=== PATIENT | female | born 1975 | race Caucasian/White ===

== ENCOUNTER → 2016-03-30 | Outpatient (CLI) | payer OTHER ==
--- NOTE | 2016-03-30 21:16 | MR ---
EXAMINATION TYPE: MR lumbar spine wo con DATE OF EXAM: 03/30/2016 4:07 PM COMPARISON: Pelvic ultrasound January 25, 2014 HISTORY: numbness and tingling in both legs for about a year per patient. Benign essential tremor per order. TECHNIQUE: Multiplanar, multisequence imaging of the lumbar spine is performed without IV contrast. FINDINGS: Survey images shows heterogeneous bulky likely fibroid uterus which correlates with pelvic ultrasound. Sagittal images of the lumbar spine show vertebral body heights and alignment to appear s atisfactory. There is disc desiccation at L2-L3 level otherwise the intervertebral discs demonstrate normal heights and hydration. No significant posterior disc herniations are seen on sagittal images The conus medullaris is normal in position and signal ending at inferior L1 vertebral body level. Th e bone marrow signal intensity is within normal limits. No significant spurring is seen. Axial images show at the T12-L1 and L1-L2 levels to appear within normal limits. Axial images at L2-L3 level show mild broad based posterior disc protrusion minimally effacing anteri or thecal sac on axial image 18, bilateral neural foramina are patent. Axial images at the L3-L4 level show mild broad disc bulge mildly effacing the anterior thecal sac, b ilateral neural foramina are patent. Axial images at L4-L5 level show mild facet degenerative changes bilaterally. Spinal canal is preserv ed and bilateral neural foramina are patent. Axial images at L5-S1 level show mild facet degenerative changes bilaterally with central disc protru shane but spinal canal is preserved and bilateral neural foramina are patent. IMPRESSION: Some multilevel degenerative changes in the mid to lower lumbar spine as detailed above. Prominent fibroid type uterus redemonstrated.
== END | disposition home or self-care (01) ==
LOC: RADMRIMAIN 15:26
PROVIDERS: ATTEND Psychiatry & Neurology Neurology
DX: M47.816 Spondylosis without myelopathy or radiculopathy, lumbar region (principal)
CPT/HCPCS: 72148

== ENCOUNTER → 2016-10-06 | Outpatient (CLI) | payer OTHER ==
--- NOTE | 2016-10-07 11:48 | MR ---
Brain MRI without contrast HISTORY: Multiple sclerosis, 235 Multiplanar multisequence imaging through the brain and correlated to prior brain MR 09/30/2015 Patient refused intravenous contrast. There is no restricted diffusion to suggest subacute ischemia. There is no hemorrhage or hydrocephalu s. Corpus callosum, pituitary, cervical medullary junction, cerebellopontine angles are stable. Infla mmatory change is again noted within the maxillary sinuses, there may be mucus retention cyst. There are normal vascular flow voids. Scattered white matter hyperintensities on inversion recovery and T2-weighted sequences are too numer ous to count. Largest lesion in the external capsule on the right measures approximately 11.2 mm as o n prior exam. IMPRESSION: Stable exam, no significant interval change is evident.
== END | disposition home or self-care (01) ==
LOC: RADMRIMAIN 17:53
PROVIDERS: ATTEND Psychiatry & Neurology Neurology
DX: G35 Multiple sclerosis (principal); Z88.6 Allergy status to analgesic agent; Z88.5 Allergy status to narcotic agent; Z88.0 Allergy status to penicillin; Z88.1 Allergy status to other antibiotic agents
CPT/HCPCS: 70551

== ENCOUNTER 2017-02-09 08:44 | Emergency (ER) | payer OTHER ==
[2017-02-09 08:50] VITALS: TEMP 97.3
--- NOTE | 2017-02-09 09:27 | ED ---
General Adult HPI - General Chief complaint: Weakness Stated complaint: MS Symptoms Time Seen by Provider: 02/09/17 08:45 Source: patient, RN notes reviewed Mode of arrival: ambulatory Limitations: no limitations - History of Present Illness Initial comments: This is a 41-year-old female who presents to the emergency department stating she is being worked up for MS. Patient states about an hour and a half prior to arrival she started having blurred vision and this is happened once before. Patient states her neurologist told to come to the emergency department immediately when this occurs. Patient states she also had some fatigue in both of her arms even though she has full function and full sensation she feels as though she can work in her arms out for a few hours. Patient denies any recent fever chills. Patient states she is not going to stay overnight because it is near [place] and she needs to spend the time the children. Patient denies any pain anywhere. Patient denies any palpitations or shortness of breath. Patient denies any abdominal pain patient denies nausea vomiting diarrhea - Related Data Home Medications Medication Instructions Recorded Confirmed Albuterol Inhaler [Ventolin Hfa 1 - 2 puff INHALATION RT-Q6H PRN 02/09/17 Inhaler] Ascorbic Acid [Vitamin C] 1,000 mg PO DAILY 02/09/17 02/09/17 Cholecalciferol [Vitamin D3] 1,000 unit PO DAILY 02/09/17 02/09/17 Cyanocobalamin (Vitamin B-12) 1,000 mcg PO DAILY 02/09/17 02/09/17 [Vitamin B-12] Ibuprofen [Motrin] 200 - 800 mg PO Q6H PRN 02/09/17 02/09/17 Magnesium 200 mg PO DAILY 02/09/17 02/09/17 Multivitamins, Thera [Multivitamin 1 tab PO DAILY 02/09/17 02/09/17 (formulary)] Allergies Allergy/AdvReac Type Severity Reaction Status Date / Time aspirin Allergy Anaphylaxis Verified 02/09/17 09:29 codeine Allergy Swelling Verified 02/09/17 09:29 erythromycin base Allergy Anaphylaxis Verified 02/09/17 09:29 meperidine HCl [From Demerol] Allergy Anaphylaxis Verified 02/09/17 09:29 Penicillins Allergy Anaphylaxis Verified 02/09/17 09:29 Review of Systems ROS Statement: Those systems with pertinent positive or pertinent negative responses have been documented in the HPI. ROS Other: All systems not noted in ROS Statement are negative. Past Medical History Past Medical History: No Reported History Additional Past Medical History / Comment(s): ovarian cyst, gallstones, essential tremors, "uncomfirmed MS" History of Any Multi-Drug Resistant Organisms: None Reported Past Surgical History: Cholecystectomy Additional Past Surgical History / Comment(s): D&C Past Psychological History: Anxiety Smoking Status: Current every day smoker Past Alcohol Use History: Rare Past Drug Use History: None Reported General Exam - General Exam Comments Initial Comments: GENERAL: Patient is well-developed and well-nourished. Patient is nontoxic and well- hydrated and is in mild distress. ENT: Neck is soft and supple. No significant lymphadenopathy is noted. Oropharynx is clear. Moist mucous membranes. Neck has full range of motion without eliciting any pain. EYES: The sclera were anicteric and conjunctiva were pink and moist. Extraocular movements were intact and pupils were equal round and reactive to light. Eyelids were unremarkable. PULMONARY: Unlabored respirations. Good breath sounds bilaterally. No audible rales rhonchi or wheezing was noted. CARDIOVASCULAR: There is a regular rate and rhythm without any murmurs gallops or rubs. ABDOMEN: Soft and nontender with normal bowel sounds. No palpable organomegaly was noted. There is no palpable pulsatile mass. SKIN: Skin is clear with no lesions or rashes and otherwise unremarkable. NEUROLOGIC: Patient is alert and oriented x3. Cranial nerves II through XII are grossly intact. Motor and sensory are also intact. Normal speech, volume and content. Symmetrical smile. MUSCULOSKELETAL: Normal extremities with adequate strength and full range of motion. LYMPHATICS: No significant lymphadenopathy is noted PSYCHIATRIC: Normal psychiatric evaluation. Limitations: no limitations Course Vital Signs 02/09/17 08:47 Temperature 97.3 F L Pulse Rate 76 Respiratory 15 Rate Blood Pressure 176/75 O2 Sat by Pulse 100 Oximetry Medical Decision Making - Medical Decision Making I spoke with Dr. Palacio doctor took one this evening patient at 1:00 tomorrow. I move the patient's MRI to today at 2:[address] Palacio follows results. Disposition Clinical Impression: Multiple sclerosis exacerbation Disposition: HOME SELF-CARE Condition: Good Instructions: Autoimmune Disease (ED) Referrals: Dhara Domínguez MD [Primary Care Provider] - 1-2 days Time of Disposition: 09:56
[2017-02-09 10:06] VITALS: BP 152/7; PULSE 65; RESP 18
== END 2017-02-09 10:04 | disposition home or self-care (01) ==
LOC: EC 08:44
DX: G35 Multiple sclerosis (principal); F17.200 Nicotine dependence, unspecified, uncomplicated; Z79.899 Other long term (current) drug therapy; Z88.0 Allergy status to penicillin; Z88.1 Allergy status to other antibiotic agents; Z88.5 Allergy status to narcotic agent; Z88.6 Allergy status to analgesic agent
CPT/HCPCS: 99284; 70553; A9581

== ENCOUNTER → 2017-02-09 | Outpatient (CLI) | payer OTHER ==
--- NOTE | 2017-02-09 15:44 | MR ---
EXAMINATION TYPE: MR brain wo/w con DATE OF EXAM: 02/09/2017 COMPARISON: Most recent MRI October 06, 2016 HISTORY: MS, Dizziness, chung weakness TECHNIQUE: Multiplanar, multisequence images of the brain and brainstem is performed without and with IV contras t, utilizing 7.5 mL intravenous Gadavist gadolinium contrast is administered intravenously. Demyelin ating disease protocol with additional Sagittal Flair sequence performed. FINDINGS: T2 Lesions Present : Yes Approximate Number of Lesions: Approximately 40 scattered from the small lesions Locations Identified : Scattered lesions no definitive infratentorial lesions Size of Reference Lesion(s): 1. 0.9 cm x 0.4 cm x 0.5 cm on axial image 20 and sagittal image 22 right frontal coronal radiata le shane felt stable Enhancing Lesion(s) Present: No T1 Hypointense Lesion(s) Present: Yes Change from Prior: Stable Diffusion weighted images demonstrate no evidence of a recent infarct or other diffusion abnormality. There is no worrisome extra-axial fluid collection. The ventricular system and cisternal spaces ar e normal in size and appearance. The brain volume is age appropriate. Midline structures demonstrate normal morphology. The craniocervical junction appears within normal limits. Post contrast images demonstrate no abnormal enhancement. The dural venous sinuses appear pa tent. The globes are distorted by artifact. There is redemonstration of 2.2 cm mucous retention cyst or polyp in inferior right maxillary sinus otherwise paranasal sinuses are clear. IMPRESSION: Fairly moderate nonspecific white matter changes most likely on basis of patient's known multiple sclerosis redemonstrated. No new or enhancing lesions are seen when compared with most recen t MRI.
== END | disposition home or self-care (01) ==
LOC: RADMRIMAIN 14:08
PROVIDERS: ATTEND Psychiatry & Neurology Neurology
DX: R90.82 White matter disease, unspecified (principal); G35 Multiple sclerosis; Z88.0 Allergy status to penicillin; Z88.5 Allergy status to narcotic agent; Z88.6 Allergy status to analgesic agent
CPT/HCPCS: 70553; A9581; 99284

== ENCOUNTER → 2017-09-18 | Outpatient (CLI) | payer OTHER ==
[2017-09-18 14:39] LABS: Anisocytosis Slight; Basophils % (A) 0 %; Eosinophils # (A) 0.1 k/uL (0-0.7); Eosinophils % (A) 1 %; HCT 37.4 % (34.0-46.0); HGB 11.5 gm/dL (11.4-16.0); Hypochromasia Slight; Lymphocytes # (A) 2.1 k/uL (1.0-4.8); Lymphocytes % (A) 24 %; MCH 26.6 pg (25.0-35.0); MCHC 30.8 g/dL (31.0-37.0); MCV 86.4 fL (80.0-100.0); Mean Platelet Volume 7.3; Monocytes # (A) 0.6 k/uL (0-1.0); Monocytes % (A) 6 %; Neutrophils # (A) 5.7 k/uL (1.3-7.7); Neutrophils % (A) 66 %; Platelet Count 362 k/uL (150-450); RBC 4.32 m/uL (3.80-5.40); RDW 16.2 % (11.5-15.5); WBC 8.6 k/uL (3.8-10.6)
--- NOTE | 2017-09-18 15:04 | US ---
EXAMINATION TYPE: US pelvic complete DATE OF EXAM: 09/18/2017 COMPARISON: US January 25, 2014 CLINICAL HISTORY: N92.1 Menorrhagia w/irregular cycle. Irregular heavy painful cycles, history of end ometriosis and uterine fibroids, 6, para 4, miscarriage 2 TECHNIQUE: . Transabdominal sonographic images of the pelvis were acquired. Date of LMP: 08/25/2017 EXAM MEASUREMENTS: Uterus: 12.4 x 9.0 x 8.4 cm Endometrial Stripe: 1.3 cm Right Ovary: 2.5 x 1.4 x 2.1 cm Left Ovary: 2.8 x 1.9 x 1.8 cm 1. Uterus: enlarged, bulky, heterogeneous with 6.7cm hypoechoic area mid/fundal portion, probable fi broid 2. Endometrium: wnl for patients LMP, somewhat distorted due to uterine fibroid 3. Right Ovary: wnl 4. Left Ovary: wnl 5. Bilateral Adnexa: wnl 6. Posterior cul-de-sac: wnl IMPRESSION: Heterogeneous enlarged bulky uterus felt to reflect underlying fibroids largest increased in size from 2014 study.
== END | disposition home or self-care (01) ==
LOC: RADUSWWP 13:44
PROVIDERS: ATTEND Obstetrics & Gynecology
DX: D25.9 Leiomyoma of uterus, unspecified (principal); N85.2 Hypertrophy of uterus
CPT/HCPCS: 36415; 76856; 83001; 83002; 84146; 84443; 85025

== ENCOUNTER → 2017-12-20 | Outpatient (CLI) | payer OTHER ==
[2017-12-20 11:14] LABS: Anisocytosis Slight; Basophils % (A) 0 %; Eosinophils # (A) 0.1 k/uL (0-0.7); Eosinophils % (A) 1 %; HCT 35.1 % (34.0-46.0); HGB 11.4 gm/dL (11.4-16.0); Hypochromasia Moderate; Lymphocytes # (A) 1.9 k/uL (1.0-4.8); Lymphocytes % (A) 27 %; MCH 27.5 pg (25.0-35.0); MCHC 32.4 g/dL (31.0-37.0); MCV 84.9 fL (80.0-100.0); Mean Platelet Volume 7.4; Monocytes # (A) 0.5 k/uL (0-1.0); Monocytes % (A) 7 %; Neutrophils # (A) 4.2 k/uL (1.3-7.7); Neutrophils % (A) 63 %; Platelet Count 357 k/uL (150-450); RBC 4.14 m/uL (3.80-5.40); RDW 16.7 % (11.5-15.5); WBC 6.8 k/uL (3.8-10.6)
[2017-12-20 11:32] LABS: Anion Gap 7 mmol/L; Blood Urea Nitrogen 13 mg/dL (7-17); Calcium 9.5 mg/dL (8.4-10.2); Carbon Dioxide 23 mmol/L (22-30); Chloride 110 mmol/L (98-107); Glucose 96 mg/dL (74-99); Potassium 4.6 mmol/L (3.5-5.1); Sodium 140 mmol/L (137-145)
== END ==
LOC: LABPAT 09:49
PROVIDERS: ATTEND Obstetrics & Gynecology
DX: Z01.812 Encounter for preprocedural laboratory examination (principal)
CPT/HCPCS: 36415; 80048; 85025

== ENCOUNTER 2017-12-28 07:55 | Observation (INO) | payer OTHER ==
[2017-12-19 16:27] VITALS: BMI 30.7
--- NOTE | 2017-12-26 17:21 | P.HPOB ---
History of Present Illness H&P Date: 12/26/17 Chief Complaint: Menorrhagia and enlarged fibroid uterus Krysta is a 42-year-old female with a large 12+ centimeter uterus with a 6.5 cm fibroid. There are also other fibroids noted within the uterus but the largest was approximately size of a tennis ball. She has bleeding that is on many occasions essentially constant. The symptoms have worsened over the last 3 -4 years. We did discuss possible alternatives to hysterectomy, but with the size for uterus a NovaSure would not work as her uterus is about the size limit for NovaSure and with the other symptoms including pressure and discomfort hysterectomy will offer her more relief. Risks/benefits/alternatives to this procedure were discussed with the patient in detail including but not limited to bleeding and infection. Damage to bladder/bowel/vascular injuries/ureter injury/nerve damage. Even potentially . She is scheduled for a robotic- assisted laparoscopic hysterectomy possible ARIES and possible BSO. With the large size for uterus it is certainly possible that we'll need to proceed with an open procedure but we will make every effort to try and do this minimally invasive. All questions are answered for her prior to proceeding to the operative room. Past Medical History Past Medical History: Asthma, COPD, Eye Disorder, Hypertension, Neurologic Disorder Additional Past Medical History / Comment(s): HX Ovarian Cysts, Gallstones. Essential Tremors. VERTIGO. HX OPTIC NEURITIS. BORDERLINE HTN. "Uncomfirmed MS," SEEING NEURO DR X2 YEARS. UTERINE FIBROIDS, HEAVY/IRREG MENSES. History of Any Multi-Drug Resistant Organisms: None Reported Past Surgical History: Cholecystectomy Additional Past Surgical History / Comment(s): D&C. Past Anesthesia/Blood Transfusion Reactions: Family History of Problems w/ Anesthesia, Motion Sickness, Postoperative Nausea & Vomiting (PONV) Additional Past Anesthesia/Blood Transfusion Reaction / Comment(s): MOTHER HAS PONV. Smoking Status: Current every day smoker - Past Family History Mother Family Medical History: Cancer Additional Family Medical History / Comment(s): BREAST, UTERINE Father Family Medical History: Cancer Additional Family Medical History / Comment(s): LUNG, PANCREAS CA Medications and Allergies Home Medications Medication Instructions Recorded Confirmed Type Albuterol Inhaler [Ventolin Hfa 1 - 2 puff INHALATION RT-Q6H PRN 02/09/17 History Inhaler] Ascorbic Acid [Vitamin C] 1,000 mg PO DAILY 02/09/17 12/19/17 History Cholecalciferol [Vitamin D3] 1,000 unit PO Q48H 02/09/17 12/19/17 History Cyanocobalamin (Vitamin B-12) 1,000 mcg PO DAILY 02/09/17 12/19/17 History [Vitamin B-12] Ibuprofen [Motrin] 200 - 800 mg PO Q6H PRN 02/09/17 12/19/17 History Magnesium 200 mg PO DAILY 02/09/17 12/19/17 History Multivitamins, Thera [Multivitamin 1 tab PO DAILY 02/09/17 12/19/17 History (formulary)] ALPRAZolam [Xanax] 0.25 mg PO DAILY PRN 12/19/17 12/19/17 History Biotin (Unknown Dose) 1 cap PO DAILY 12/19/17 History diphenhydrAMINE [Benadryl] 25 mg PO DIRECTED PRN 12/19/17 12/19/17 History Allergies Allergy/AdvReac Type Severity Reaction Status Date / Time morphine Allergy Severe Nausea & Verified 12/19/17 15:51 Vomiting aspirin Allergy Anaphylaxis Verified 12/19/17 15:51 codeine Allergy Swelling Verified 12/19/17 15:51 erythromycin base Allergy Anaphylaxis Verified 12/19/17 15:51 meperidine HCl [From Demerol] Allergy Anaphylaxis Verified 12/19/17 15:51 Penicillins Allergy Anaphylaxis Verified 12/19/17 15:51 Exam Osteopathic Statement: *. No significant issues noted on an osteopathic structural exam other than those noted in the History and Physical/Consult. - OBG Physical Exam Breast: both: normal (no masses) Abdomen: bowel sounds normal, no diffuse tenderness, no bruit present, no guarding noted, no hepatomegaly, no splenomegaly, no mass Vulva: both: normal Vagina: normal moisture, no discharge Cervix: no lesion, no discharge Uterus: Grossly enlarged fibroid uterus Uterus: normal size, enlarged, normal contour, nodular Adnexa: both: normal Anus/Rectum: normal perianal skin, no rectal mass, no hemorrhoids, heme negative
[~2017-12-28 07:55] MED LIST: CLINDAMYCIN 900 MG in DEXTROSE 5% IN WATER 50 ML IVPB ONE; DEXAMETHASONE SOD PHOSPHATE 10 MG/ML 1 ML VIAL IV ONE; GENTAMICIN 300 MG in SODIUM CHLORIDE 0.9% 100 ML IVPB ONE; LIDOCAINE 1% 20 ML VIAL (10MG/ML) FOR IV START INTRADERMA PRN; MIDAZOLAM 2 MG/2 ML VIAL IV PRN; ONDANSETRON 4 MG/2 ML VIAL IVP ONE; SCOPOLAMINE 1.5MG/72HR PATCH TRANSDERM ONE
[2017-12-28] MEDS: LACTATED RINGERS 1,000 ML IV SCH (09:02)
[2017-12-28] MEDS ORDERED: KETOROLAC 30 MG/ML 1 ML VIAL ONE (09:57)
[2017-12-28] MEDS ORDERED: GLYCOPYRROLATE 0.2 MG/ML 2 ML VIAL ONE (09:57)
[2017-12-28] MEDS ORDERED: PROPOFOL 10 MG/ML 20 ML VIAL IV ONE (09:57)
[2017-12-28] MEDS ORDERED: LIDOCAINE 1% INJ 10MG/ML (20 ML MDV) ONE (09:57)
[2017-12-28] MEDS ORDERED: ROCURONIUM BROMIDE 10 MG/ML 10 ML VIAL IV ONE (09:57)
[2017-12-28] MEDS ORDERED: fentaNYL (PF) 50 MCG/ML 2 ML AMP ONE (09:57)
[2017-12-28] MEDS ORDERED: MIDAZOLAM 2 MG/2 ML VIAL ONE (09:57)
[2017-12-28] MEDS ORDERED: NEOSTIGMINE 1 MG/ML 10 ML VIAL ONE (09:57)
[2017-12-28] MEDS ORDERED: BUPIVACAINE (PF) 0.25% 30 ML VIAL SQ ONE ×2 (10:18)
[2017-12-28] MEDS ORDERED: LACTATED RINGERS 1,000 ML IV ONE (11:38)
[2017-12-28] MEDS ORDERED: ONDANSETRON 4 MG/2 ML VIAL IVP PRN (11:50)
--- NOTE | 2017-12-28 11:56 | P.OP ---
Date of Procedure: 12/28/17 Preoperative Diagnosis: Menorrhagia: Fibroid uterus Postoperative Diagnosis: Same Procedure(s) Performed: Robotic-assisted laparoscopic hysterectomy Anesthesia: TASNEEM Surgeon: Oleg Fuchs Librarian #1: Loretta Camilo Estimated Blood Loss (ml): 300 IV fluids (ml): 800 Urine output (ml): 350 Pathology: other (Uterus and cervix) Condition: stable Disposition: floor Operative Findings: Grossly enlarged fibroid uterus Description of Procedure: Patient was taken to the operating suite where he generalized anesthetic was found be adequate. She was prepped and draped in normal sterile fashion and placed in dorsal lithotomy position. Initially weighted speculum was inserted into the vagina and the anterior lip of the cervix was identified and grasped with a single-tooth tenaculum. Cervix was then dilated and uterus was sounded to 12 cm. A Eugenia manipulator with a 3.5 cm cup and a 12 cm tip was then placed with stay sutures at 3 and 9. Fraire cath was then placed other incidents removed and gloves were changed and attention was turned to abdominal portion of the procedure. A 2 mL of quarter percent Marcaine was injected 2 cm above the umbilicus and through this injected anesthetic a 5 mm skin incision was made and through this incision under direct visualization with an optical trocar and sleeve the camera was inserted. Once peritoneal placement was assured gas was allowed to fully insufflate the abdomen and patient was then placed in a Trendelenburg position a 25. 2 lateral ports were then placed approximately same line as the umbilicus about 10-11 cm lateral to the umbilicus. This was done on the right and left side through 8 cm incisions and da Freddy ports were placed. A fourth port and sleeve was then inserted between the left lateral and the medial port was through a 1 cm incision. Once this was accomplished robot was brought in and docked in once fully docked a scissor was placed in the one arm and a [place] grasper in the 2 arm. At this point I did break scrub and go to the console. Observations the pelvis were noted. Initially the uterus was tipped to the right-hand side and the left utero- ovarian ligament was identified cauterized and transected. Fallopian tube tissues also transected as well as the mesosalpinx tissues to the round ligament. Round blade was then cauterized and transected and anterior posterior leafs the broad ligament were developed. Left uterine vasculature was then cauterized and undermining of the bladder was performed undermining with a [place] and incised with the scissor across face uterus to create the bladder flap. Once this was accomplished uterus was tipped to the left side and the right side of the uterus was similarly developed. Once this was accomplished attempts to obtain good hemostasis across the vascularity of the uterine vascular suture was then done, however there was significant tortuosity and added blood vessels due to grossly enlarged fibroid uterus. We did make an anterior colpotomy and then followed around in a clockwise fashion cheating head when necessary to help maintain a limited blood loss. Once we did go on 360 to remove the uterus and cervix from the vagina uterus was brought into the vagina by walking it out by pulling on the cervix and then using the single- tooth and double tooth tenaculum to bring the uterus down into the vagina. As a stepwise process and no bleeding was noted on the pedicles at the conclusion. Once uterus was out vagina was packed and I did return to the console this point and with good hemostasis along the pedicles to OB lock sutures then used to reapproximate the vaginal cuff in a running fashion. Pelvis was then thoroughly irrigated. With no bleeding noted instruments were removed and gas was allowed to expel from the abdomen. 5 deep breaths were provided during this process and Dr. Camilo then close the incision subcuticularly while I did a cystoscopy with good flow noted from both ureteral jets. Sponge, lap, needle counts were all correct 2. Patient was then taken to the recovery room in stable and satisfactory condition.
[2017-12-28] MEDS: HYDROmorphone 0.5 MG/0.5 ML SYRINGE IVP PRN ×2 (12:02→12:35)
[2017-12-28] MEDS ORDERED: ONDANSETRON 4 MG/2 ML VIAL IVP ONE (12:02)
[2017-12-28] MEDS ORDERED: METOCLOPRAMIDE 5 MG/ML 2 ML VIAL IVP ONE (12:19)
[2017-12-28] MEDS: ACETAMINOPHEN TAB 325 MG TAB PO PRN (15:32)
[2017-12-28] MEDS ORDERED: NICOTINE 14MG/24HR PATCH TRANSDERM STA (15:41)
[2017-12-28] MEDS: SIMETHICONE 80 MG CHEWABLE PO PRN ×2 (17:03→21:10)
[2017-12-28] MEDS: KETOROLAC 30 MG/ML 1 ML VIAL IVP PRN (19:37)
[2017-12-28 20:23] VITALS: RESP 18
[2017-12-29 00:13] VITALS: BP 117/71; PULSE 71; TEMP 98.2
[2017-12-29] MEDS: SENNOSIDES-DOCUSATE SODIUM 1 EACH TAB PO SCH ×2 (00:14→10:09)
[2017-12-29] MEDS: KETOROLAC 30 MG/ML 1 ML VIAL IVP PRN (02:05)
[2017-12-29] MEDS: SIMETHICONE 80 MG CHEWABLE PO PRN ×2 (02:05→06:22)
[2017-12-29] MEDS: ACETAMINOPHEN TAB 325 MG TAB PO PRN (06:31)
[2017-12-29 06:38] LABS: Anisocytosis Slight; Basophils % (A) 0 %; Eosinophils # (A) 0.2 k/uL (0-0.7); Eosinophils % (A) 2 %; HCT 33.3 % (34.0-46.0); HGB 10.3 gm/dL (11.4-16.0); Hypochromasia Marked; Lymphocytes # (A) 1.9 k/uL (1.0-4.8); Lymphocytes % (A) 16 %; MCH 26.5 pg (25.0-35.0); MCV 85.6 fL (80.0-100.0); Mean Platelet Volume 7.4; Monocytes # (A) 0.6 k/uL (0-1.0); Monocytes % (A) 5 %; Neutrophils % (A) 75 %; Platelet Count 362 k/uL (150-450); RBC 3.89 m/uL (3.80-5.40); RDW 16.4 % (11.5-15.5)
--- NOTE | 2017-12-29 08:58 | P.DS ---
Providers Date of admission: 12/29/17 02:38 Expected date of discharge: 12/29/17 Attending physician: Oleg Fuchs Primary care physician: Stated None Hospital Course: Patient is doing very well postop day 1. She is involuting, voiding, and she is tolerating her diet. She voices no complaints. Vital signs are stable and afebrile. Heart regular, lungs clear, extremities without pain. She is passing flatus. Abdomen is soft incisions are clean dry and intact and she has bowel sounds. Assessment postop day 1. Plan discharged home follow up with me in approximately 10 days. Prescription for Motrin has been provided. Discharge instructions thoroughly reviewed. She is stable for discharge this time. Patient Condition at Discharge: Good Plan - Discharge Summary Discharge Rx Participant: Yes New Discharge Prescriptions: New Ibuprofen [Motrin] 600 mg PO Q6HR PRN #30 tab PRN Reason: Pain No Action Multivitamins, Thera [Multivitamin (formulary)] 1 tab PO DAILY Magnesium 200 mg PO DAILY Cholecalciferol [Vitamin D3] 1,000 unit PO Q48H Ascorbic Acid [Vitamin C] 1,000 mg PO DAILY Ibuprofen [Motrin] 200 - 800 mg PO Q6H PRN PRN Reason: Pain Albuterol Inhaler [Ventolin Hfa Inhaler] 1 - 2 puff INHALATION RT-Q6H PRN PRN Reason: sob Cyanocobalamin (Vitamin B-12) [Vitamin B-12] 1,000 mcg PO DAILY ALPRAZolam [Xanax] 0.25 mg PO DAILY PRN PRN Reason: Anxiety Biotin (Unknown Dose) 1 cap PO DAILY diphenhydrAMINE [Benadryl] 25 mg PO DIRECTED PRN PRN Reason: VERTIGO Discharge Medication List Albuterol Inhaler [Ventolin Hfa Inhaler] 1 - 2 puff INHALATION RT-Q6H PRN [History] Ascorbic Acid [Vitamin C] 1,000 mg PO DAILY 02/09/17 [History] Cholecalciferol [Vitamin D3] 1,000 unit PO Q48H 02/09/17 [History] Cyanocobalamin (Vitamin B-12) [Vitamin B-12] 1,000 mcg PO DAILY 02/09/17 [ History] Ibuprofen [Motrin] 200 - 800 mg PO Q6H PRN 02/09/17 [History] Magnesium 200 mg PO DAILY 02/09/17 [History] Multivitamins, Thera [Multivitamin (formulary)] 1 tab PO DAILY 02/09/17 [History ] ALPRAZolam [Xanax] 0.25 mg PO DAILY PRN 12/19/17 [History] Biotin (Unknown Dose) 1 cap PO DAILY 12/19/17 [History] diphenhydrAMINE [Benadryl] 25 mg PO DIRECTED PRN 12/19/17 [History] Ibuprofen [Motrin] 600 mg PO Q6HR PRN #30 tab 12/29/17 [Rx] Follow up Appointment(s)/Referral(s): Oleg Fuchs DO [Doctor of Osteopathic Medicine] - 10 Days Activity/Diet/Wound Care/Special Instructions: No heavy lifting, limit stairs and driving, and pelvic rest. If any high temperatures, heavy bleeding, or severe pain call my office Discharge Disposition: HOME SELF-CARE
[2017-12-29] MEDS ORDERED: IBUPROFEN 600 MG TAB PO STA (09:55)
== END 2017-12-29 10:17 | disposition home or self-care (01) ==
LOC: OR 07:55 → 4FBP 11:57 → OR 12-29 02:50
PROVIDERS: ADMIT Obstetrics & Gynecology; ATTEND Obstetrics & Gynecology
DX: D25.9 Leiomyoma of uterus, unspecified (principal); N92.0 Excessive and frequent menstruation with regular cycle; N85.2 Hypertrophy of uterus; J44.9 Chronic obstructive pulmonary disease, unspecified; I10 Essential (primary) hypertension; R29.90 Unspecified symptoms and signs involving the nervous system; G25.0 Essential tremor; F17.200 Nicotine dependence, unspecified, uncomplicated; Z79.899 Other long term (current) drug therapy; Z88.0 Allergy status to penicillin; Z88.1 Allergy status to other antibiotic agents; Z88.5 Allergy status to narcotic agent; Z88.6 Allergy status to analgesic agent; Z86.69 Personal history of other diseases of the nervous system and sense organs; Z87.42 Personal history of other diseases of the female genital tract; Z90.49 Acquired absence of other specified parts of digestive tract; Z80.3 Family history of malignant neoplasm of breast; Z80.49 Family history of malignant neoplasm of other genital organs; Z80.0 Family history of malignant neoplasm of digestive organs; Z80.1 Family history of malignant neoplasm of trachea, bronchus and lung
CPT/HCPCS: 58553; S2900; 81025; 85025; 86850; 86900; 86901; 88307

== ENCOUNTER → 2018-07-04 | Outpatient (CLI) | payer OTHER ==
--- NOTE | 2018-07-06 11:29 | MM ---
Reason for exam: screening (asymptomatic). Last mammogram was performed 16 years and 4 months ago. History: Patient is postmenopausal and is nulliparous. Family history of premenopausal breast cancer in mother, breast cancer in maternal grandmother, and breast cancer in maternal aunt. Benign core biopsy of the left breast, May 12, 1997. Physical Findings: A clinical breast exam by your physician is recommended on an annual basis and results should be correlated with mammographic findings. MG Screening Mammo w CAD Bilateral CC, MLO, and XCCL view(s) were taken. Prior study comparison: March 01, 2002, bilateral diagnostic mammogram. May 24, 1999, bilateral diagnostic mammogram. No suspicious abnormality in the left breast. Right posterior depth upper outer quadrant focal asymmetry 10-11cm from nipple. These results were verbally communicated with the patient and result sheet given to the patient on 07/04/18. ASSESSMENT: Incomplete: need additional imaging evaluation, BI-RAD 0 RECOMMENDATION: Special view mammogram of the right breast. If lesion persists on supplemental views, image directed ultrasound is recommended. [facility] will attempt to contact patient to return for supplemental views and ultrasound if indicated.
== END ==
LOC: RADMAMWWP 13:26
PROVIDERS: ATTEND Internal Medicine
DX: Z12.31 Encounter for screening mammogram for malignant neoplasm of breast (principal)
CPT/HCPCS: 77067

== ENCOUNTER → 2018-07-11 | Outpatient (CLI) | payer OTHER ==
--- NOTE | 2018-07-12 16:02 | MR ---
EXAMINATION TYPE: MR brain/cspine wo/w DATE OF EXAM: 07/11/2018 COMPARISON: MR brain dated 02/09/2017 and MRI of the cervical spine dated 11/26/2015 HISTORY: Headaches, dizziness, BUE/BLE weakness, MS TECHNIQUE: Multiplanar, multisequence images of the brain and brainstem is performed without and with IV contras t, utilizing 9 mL intravenous Gadavist . FINDINGS: BRAIN: Diffusion weighted images demonstrate no evidence of a recent infarct or other diffusion abnor mality. There is no extra-axial fluid collection. The ventricular system and cisternal spaces are n ormal in size and appearance. The brain volume is age appropriate. T2 Lesions Present : Yes Approximate Number of Lesions: Again there are approximately 40 scattered lesions Locations Identified : Juxtacortical, periventricular, and pericallosal. No brainstem or infratentori al lesions. Size of Reference Lesion(s): 1. There is a 1.0 x 0.4 x 0.5 cm lesion in the right frontal sarmiento radiata that previously measured 0.9 cm x 0.4 cm x 0.5 cm now seen on axial image 20 and sagittal image 185 right frontal coronal radi kali lesion, overall stable Enhancing Lesion(s) Present: No T1 Hypointense Lesion(s) Present: Yes Change from Prior: Stable Midline structures demonstrate normal morphology. The craniocervical junction appears within normal limits. Post contrast images demonstrate no abnormal enhancement. The dural venous sinuses appear pa tent. There is a persistent right-sided mucosal retention cyst measuring up to 2.2 cm seen dependentl y in the maxillary sinus. Scant mucosal thickening is seen within the ethmoid sinuses. Remaining para nasal sinuses and mastoid air cells are well aerated. [place] tonsils remain prominent but partially visualized. Intraparotid lymph nodes are incidentally seen. CERVICAL SPINE: The cervical spine vertebral bodies maintain normal vertebral body heights and alignment. Bone marrow signal is overall within normal limits although lower limits of normal. No abnormal signal is seen w ithin the spinal cord in the cervical spine. Multilevel disc desiccation is seen. No abnormal postcon trast enhancement is seen of the cervical spine. C2-C3: No significant disc disease, spinal canal stenosis nor neural foraminal narrowing. C3-C4: No significant disc disease, spinal canal stenosis nor neural foraminal narrowing. C4-C5: There is a broad-based disc bulge without spinal canal stenosis or neural foraminal narrowing. C5-C6: There is a broad-based disc bulge and minimal uncovertebral hypertrophy creating very minimal bilateral neural foraminal narrowing without spinal canal stenosis. C6-C7: There is a left paracentral disc herniation as seen on the prior exam effacing the ventral sub arachnoid space and creating mild spinal canal stenosis. This in combination with uncovertebral hyper trophy creates mild left neural foraminal narrowing. Right neuroforamen is patent. C7-T1: Small broad-based disc bulge is seen without neural foraminal narrowing or spinal canal stenos is. IMPRESSION: 1. Stable moderate burden nonspecific white matter change in keeping with the patient's history of mu ltiple sclerosis with no new lesions, no enhancing lesions, and no lesions that restricted diffusion. No evidence of active demyelination at the time of exam. 2. Persistent paranasal sinus disease with right maxillary mucosal retention cysts. 3. Unchanged left paracentral disc herniation at C6-C7 creating mild spinal canal stenosis and mild l eft neural foraminal narrowing. 4. Redemonstration of broad-based disc bulges at C4-C5, C5-C6, and C7-T1 without spinal canal stenosi s. 5. No evidence of abnormal enhancement or demyelinating plaque within the cervical spine.
== END | disposition home or self-care (01) ==
LOC: RADMRIMAIN 18:22
PROVIDERS: ATTEND Psychiatry & Neurology Pain Medicine
DX: G35 Multiple sclerosis (principal); M48.02 Spinal stenosis, cervical region; M50.221 Other cervical disc displacement at C4-C5 level; Z88.0 Allergy status to penicillin; Z88.6 Allergy status to analgesic agent; Z88.5 Allergy status to narcotic agent; Z88.8 Allergy status to other drugs, medicaments and biological substances
CPT/HCPCS: 70553; 72156; A9585

== ENCOUNTER → 2018-07-11 | Outpatient (CLI) | payer OTHER ==
--- NOTE | 2018-07-11 11:56 | MM ---
Reason for exam: additional evaluation requested from abnormal screening. Last mammogram was performed less than 1 month ago. History: Patient is postmenopausal and is nulliparous. Family history of premenopausal breast cancer in mother, breast cancer in maternal grandmother, and breast cancer in maternal aunt. Benign core biopsy of the left breast, May 12, 1997. MG Work Up Mamm w CAD RT CC and MLO view(s) were taken of the right breast. Prior study comparison: July 04, 2018, bilateral MG screening mammo w CAD. March 01, 2002, bilateral diagnostic mammogram. The breast tissue is heterogeneously dense. This may lower the sensitivity of mammography. There is no discrete abnormality. These results were verbally communicated with the patient and result sheet given to the patient on 07/11/18. ASSESSMENT: Probably benign, BI-RAD 3 RECOMMENDATION: Follow-up diagnostic mammogram of the right breast in 6 months.
== END ==
LOC: RADMAMWWP 11:07
PROVIDERS: ATTEND Internal Medicine
DX: R92.8 Other abnormal and inconclusive findings on diagnostic imaging of breast (principal)
CPT/HCPCS: 77065

== ENCOUNTER → 2018-10-02 | Outpatient (CLI) | payer OTHER ==
[2018-10-02 15:29] LABS: African American GFR (CKD) >90 (>60 ml/min/1.73 sqM); Blood Urea Nitrogen 13 mg/dL (7-17); Non-African American GFR(CKD) >90 (>60 ml/min/1.73 sqM)
--- NOTE | 2018-10-03 08:39 | CT ---
EXAMINATION TYPE: CT urogram wo/w con DATE OF EXAM: 10/02/2018 HISTORY: hematuria CT DLP: 2222.0mGycm Automated Exposure Control for Dose Reduction was Utilized. CONTRAST: CT scan of the abdomen and pelvis is performed with IV Contrast, patient injected with 100 mL of Isov ue 300. COMPARISON: Ultrasound of the abdomen dated 11/29/2011 FINDINGS: LUNG BASES: Groundglass and strandy densities at the left lung base likely on the basis of atelectasi s and scarring. No pleural effusion. LIVER/GB: No significant abnormality is appreciated. Cholecystectomy. PANCREAS: No significant abnormality is seen. SPLEEN: No significant abnormality is seen. ADRENALS: No significant abnormality is seen. KIDNEYS: Symmetric perfusion of the bilateral kidneys. No evidence of hydronephrosis. No nephrolithia sis. No solid or cystic renal mass. BOWEL: No significant abnormality is seen. UTERUS/ADNEXA: No gross abnormality seen. LYMPH NODES: No greater than 1cm abdominal or pelvic lymph nodes are appreciated. OSSEOUS STRUCTURES: Small sclerotic lesion is seen in the L2 vertebral body likely related to small b [place]. OTHER: Intravenous contrast is seen entering the urinary bladder with bilateral urinary jets visualiz ed. No bladder wall thickening. IMPRESSION: No significant acute finding is seen to account for patient's clinical symptoms. No nephr olithiasis. No hydronephrosis. No solid or cystic renal mass.
== END | disposition home or self-care (01) ==
LOC: RADCTMAIN 14:45
PROVIDERS: ATTEND Urology
DX: R31.1 Benign essential microscopic hematuria (principal)
CPT/HCPCS: 82565; 84520; 74178; 36415; 74400; Q9967

== ENCOUNTER 2018-10-11 08:40 | Day surgery (SDC) | payer OTHER ==
[2018-10-09 10:11] VITALS: BMI 30.7
[~2018-10-11 08:40] MED LIST changes: -CLINDAMYCIN 900 MG in DEXTROSE 5% IN WATER 50 ML IVPB ONE; -DEXAMETHASONE SOD PHOSPHATE 10 MG/ML 1 ML VIAL IV ONE; -GENTAMICIN 300 MG in SODIUM CHLORIDE 0.9% 100 ML IVPB ONE; +LACTATED RINGERS 1,000 ML IV SCH; -LIDOCAINE 1% 20 ML VIAL (10MG/ML) FOR IV START INTRADERMA PRN; -MIDAZOLAM 2 MG/2 ML VIAL IV PRN; -ONDANSETRON 4 MG/2 ML VIAL IVP ONE; -SCOPOLAMINE 1.5MG/72HR PATCH TRANSDERM ONE
[2018-10-11 09:19] VITALS: TEMP 97.9
[2018-10-11] MEDS ORDERED: LIDOCAINE 1% 20 ML VIAL (10MG/ML) FOR IV START SQ ONE (09:26)
[2018-10-11] MEDS ORDERED: DEXAMETHASONE SOD PHOSPHATE 10 MG/ML 1 ML VIAL IV ONE (09:28)
[2018-10-11] MEDS ORDERED: ONDANSETRON 4 MG/2 ML VIAL IVP ONE (09:28)
[2018-10-11] MEDS ORDERED: SCOPOLAMINE 1.5MG/72HR PATCH TRANSDERM ONE (09:28)
[2018-10-11] MEDS ORDERED: PROPOFOL 10 MG/ML 20 ML VIAL IV ONE (09:57)
[2018-10-11] MEDS ORDERED: LIDOCAINE 1% INJ 10MG/ML (20 ML MDV) ONE (09:57)
--- NOTE | 2018-10-11 10:16 | P.PCN ---
Date of Procedure: 10/11/18 Procedure(s) Performed: BRIEF HISTORY: Patient is a 43-year-old pleasant female scheduled for an elective colonoscopy as a part of evaluation of chronic diarrhea for the last several years duration. She has bowel movements anywhere from 6-8 a day which are loose to watery in consistency but no blood or mucus in the stool. She is hence scheduled for colonoscopy to evaluate further. PROCEDURE PERFORMED: Colonoscopy with random biopsy. PREOPERATIVE DIAGNOSIS: Chronic diarrhea. IV sedation per Anesthesia. PROCEDURE: After informed consent was obtained, the patient, was brought into the endoscopy unit. IV sedation was administered by Anesthesia under continuous monitoring. Digital rectal examination was normal. Initially the Olympus CF-160 flexible video colonoscope was then inserted in the rectum, gradually advanced into the cecum without any difficulty. Careful examination was performed as the scope was gradually being withdrawn. Ileocecal valve and the appendiceal orifice were visualized and appeared normal. Prep was excellent. Mucosa of the cecum, ascending colon, transverse colon, descending colon, sigmoid colon, and rectum appeared normal. Random biopsies were done from ascending and descending colon to rule out microscopic/collagenous colitis. Retroflexion was performed in the rectum and no lesions were seen. The patient tolerated the procedure well. IMPRESSION: Normal-appearing colon from rectum to cecum with no evidence of colitis or colorectal neoplasia. RECOMMENDATIONS: Findings of this examination were discussed with the patient as well as a family. She was advised to follow with the biopsy results. Continue with Bentyl daily. She can have a repeat Colonoscopy in 10 years.
[2018-10-11 10:30] VITALS: RESP 18
[2018-10-11 10:42] VITALS: BP 129/83; PULSE 66
== END 2018-10-11 11:01 | disposition home or self-care (01) ==
LOC: ORWHC2ENDO 08:40
PROVIDERS: ATTEND Internal Medicine Gastroenterology
DX: K52.9 Noninfective gastroenteritis and colitis, unspecified (principal); I10 Essential (primary) hypertension; J44.9 Chronic obstructive pulmonary disease, unspecified; F17.200 Nicotine dependence, unspecified, uncomplicated; Z90.49 Acquired absence of other specified parts of digestive tract; Z90.710 Acquired absence of both cervix and uterus; Z79.899 Other long term (current) drug therapy; Z88.6 Allergy status to analgesic agent; Z88.5 Allergy status to narcotic agent; Z88.1 Allergy status to other antibiotic agents; Z88.0 Allergy status to penicillin
CPT/HCPCS: 88305; 45380; J1100; J2405; J2001; J2704

== ENCOUNTER → 2018-10-26 | Outpatient (CLI) | payer OTHER ==
[2018-10-26 16:33] LABS: Gliadin AB IgA, Unit 0.4 U/mL
== END | disposition home or self-care (01) ==
LOC: LABWHC1 10:25
PROVIDERS: ATTEND Physician Assistant
DX: K52.9 Noninfective gastroenteritis and colitis, unspecified (principal)
CPT/HCPCS: 36415; 83516

== ENCOUNTER → 2018-11-12 | Outpatient (CLI) | payer OTHER ==
--- NOTE | 2018-11-12 22:48 | MR ---
EXAMINATION TYPE: MR lumbar spine wo/w con DATE OF EXAM: 11/12/2018 COMPARISON: 03/30/2016 HISTORY: LBP, L2 abnormality seen on CT urogram TECHNIQUE: Multiplanar, multisequence images of the lumbar spine were acquired utilizing 7.5 mL intravenous Gada vist gadolinium contrast. Lumbar vertebra have normal alignment. Disc spaces are fairly normal. There is no compression fractur e. There is no spinal stenosis. Lumbar nerve roots appear normal. The neural foramina are widely fleming nt. There is no pathologic enhancement of the nerve roots. The posterior elements are intact. There i s no lumbar paraspinal mass. Sacroiliac joints are intact. There is a 7 mm perineural cyst in the spi nal canal at the S1 level on the left side. There is no evidence of focal lesion of the L2 vertebral body. IMPRESSION: No lumbar disc herniation. No spinal stenosis. Sacral perineural cyst unchanged. No change compared t o old exam.
== END | disposition home or self-care (01) ==
LOC: RADMRIMAIN 20:50
PROVIDERS: ATTEND Psychiatry & Neurology Pain Medicine
DX: M54.5 Low back pain (principal); Z88.0 Allergy status to penicillin; Z88.1 Allergy status to other antibiotic agents
CPT/HCPCS: 72158; A9585

== ENCOUNTER → 2019-10-24 | Outpatient (CLI) | payer OTHER ==
--- NOTE | 2019-10-24 17:42 | CONS ---
CONSULTATION DATE OF SERVICE: 10/24/2019 This patient is a 44-year-old lady who has been evaluated in Sleep Center for possible obstructive sleep apnea-hypopnea syndrome. HISTORY OF PRESENT ILLNESS/SLEEP-WAKE EVALUATION: Patient's usual sleep schedule on weekdays is from 8 p.m. until 5 a.m. and on weekends from 9 p.m. to 5 a.m. Rarely she has problems with falling asleep, although she has a TV set in the bedroom. She sleeps on the side position usually. She snores and wakes up from sleep up to 4 times, with 2 episodes of nocturia. During the day she has problems with memory and concentration. [place] Sleepiness Scale is significantly increased at 10. She may take several naps during the day and sometimes may see vivid dreams during naps. She takes up to 3 caffeinated beverages during the day. PAST MEDICAL HISTORY: Positive for hypertension. Recently echocardiogram, according to the patient, showed changes of the right side of the heart with hypertrophy. She has history of multiple sclerosis with changes in the head. PAST SURGICAL HISTORY: Total hysterectomy, D&C. MEDICATIONS: Metoprolol, Bentyl, loperamide, tramadol, Xanax, vitamin D. SOCIAL HISTORY: Positive for smoking for one pack a day for 15 years. Alcohol consumption occasional. REVIEW OF SYSTEMS: Awakenings from sleep, sleepiness during the day. FAMILY HISTORY: Hypertension, heart problems, fibromyalgia, cancer, diabetes. PHYSICAL EXAMINATION: GENERAL: A pleasant 44-year-old lady without distress. VITAL SIGNS: BP 125/83, HR 68, RR 15, height 5 feet 6 inches, weight 204, BMI 32.9, temperature 98.2, oxygen saturation at room air 97%. HEENT: PERRLA, EOMI. Evaluation of oropharynx showed tongue protrudes midline. Extremely low position of soft palate. Mallampati IV. NECK: Supple. No JVD. Thyroid is not palpable. LUNGS: Clear to percussion and to auscultation. Good air exchange. No wheezing or rhonchi. HEART: S1, S2 regular. No murmurs, gallops or rubs. ABDOMEN: Slightly obese. EXTREMITIES: No clubbing or cyanosis. CAR SHIFTER: Awake, alert, and oriented X3. Cranial nerves 2 to 7 intact. There is no fasciculation or atrophy. noted. No focal deficits observed. IMPRESSION: 1. Snoring, low position of soft palate, multiple awakenings from sleep with nocturia, sleepiness; obstructive sleep apnea-hypopnea syndrome. 2. Sleepiness with [place] Sleepiness Scale of 10 and history of several naps a day, dictating necessity to include hypersomnia in differential diagnosis, including narcolepsy secondary to multiple sclerosis. 3. History of multiple sclerosis with a lesion in the brain. 4. Hypertension. 5. History of hypertrophy of right side by results of echocardiogram, according to the patient. 6. Status post total hysterectomy. 7. Status post dilation and curettage. PLAN: 1. Home sleep apnea test for evaluation of patient's breathing during sleep. 2. CPAP/BiPAP titration if sleep study confirms obstructive sleep apnea-hypopnea syndrome. 3. Preferable position during sleep on the side. 4. No driving if patient feels any sleepiness. 5. I will see patient for follow-up visit to explain results of testing and following plan. Thank you very much for referring this patient for consultation. Sincerely, Lars Pop MD, PhD, FAASM Diplomat of [place] [employer] [place] [employer] [facility] [place] MMODL / IJN: [id number] /
== END | disposition home or self-care (01) ==
LOC: SLEEP 15:58
PROVIDERS: ATTEND Internal Medicine
DX: G47.33 Obstructive sleep apnea (adult) (pediatric) (principal); I10 Essential (primary) hypertension; G35 Multiple sclerosis; Z90.710 Acquired absence of both cervix and uterus; Z86.69 Personal history of other diseases of the nervous system and sense organs; Z79.899 Other long term (current) drug therapy; Z79.891 Long term (current) use of opiate analgesic
CPT/HCPCS: 99211

== ENCOUNTER → 2021-02-24 | Outpatient (CLI) | payer BC, OTHER ==
--- NOTE | 2021-02-25 12:03 | SFUN ---
SLEEP CENTER FOLLOW UP NOTE DATE OF SERVICE: 02/24/2021 45-year-old lady has been followed in Sleep Center. The patient had a home sleep apnea test which was done in October of 2019. Test did not show significant abnormalities of respiration with relationship to apnea-hypopnea index, but oxygen level was below or equal to 88% for 15 minutes according to computer calculation, which is not normal. Presently, the patient continues to have some symptoms of excessive daytime sleepiness. [place] Sleepiness Scale is 12. MEDICATIONS: Xanax 0.25 mg as needed, last time 3 days ago, albuterol inhaler as needed, metoprolol extended release 25 mg once a day, loperamide 2 mg 2 tablets once a day. PHYSICAL EXAMINATION: GENERAL: Patient in no distress. BP 163/80, HR 67, RR 15, height 5 feet 5-1/2 inches, weight 200.2 pounds, BMI 32.7, temperature 97.3, oxygen saturation at room air 97%. Oropharynx: Extremely low position of soft palate, Mallampati 4. NECK: Supple, no JVD. Thyroid is not palpable. LUNGS: Clear to percussion and to auscultation. Good air exchange. No wheezing or rhonchi. HEART: S1, S2 regular. No murmurs, gallops, or rubs. ABDOMEN: Soft and nontender. Bowel sounds are present. No organomegaly appreciated. EXTREMITIES: No clubbing or cyanosis. PAYROLL PROFESSIONAL: Awake, alert, and oriented X3. Cranial nerves 2 to 7 intact. There is no fasciculation or atrophy. noted. No focal deficits observed. IMPRESSION: 1. Snoring, extremely low position of soft palate, multiple awakenings from sleep with nocturia, sleepiness, possible obstructive sleep apnea-hypopnea syndrome. 2. [place] Sleepiness Scale increased to 12. Differential diagnosis includes hypersomnia also narcolepsy secondary to multiple sclerosis. 3. History of multiple sclerosis with lesion in the brain. 4. Hypertension. 5. History of hypertrophy of right side of the heart by results of echocardiogram according to patient. 6. Status post total hysterectomy. 7. Status post D and C. PLAN: 1. Home sleep apnea test for evaluation of patient breathing during. 2. Sleep hygiene with regular time in bed for at least 7-1/2 to 8 hours. 3. No driving if feeling sleepiness. 4. Following plan after reviewing sleep test. Thank you very much for allowing me to participate in management of your patient. Sincerely, Lars Pop MD, PhD, FAASM Diplomat of [place] [employer] Sleep Medicine Board of [place] [employer] Supervisor [facility] [place] STARR / NIRAJ: [id number] /
== END ==
LOC: SLEEP 14:41
PROVIDERS: ATTEND Internal Medicine
DX: R06.83 Snoring (principal); R35.1 Nocturia; I10 Essential (primary) hypertension; F17.200 Nicotine dependence, unspecified, uncomplicated; Z86.79 Personal history of other diseases of the circulatory system; Z86.69 Personal history of other diseases of the nervous system and sense organs; Z90.710 Acquired absence of both cervix and uterus; Z87.59 Personal history of other complications of pregnancy, childbirth and the puerperium; Z79.899 Other long term (current) drug therapy; Z88.5 Allergy status to narcotic agent; Z88.6 Allergy status to analgesic agent; Z88.1 Allergy status to other antibiotic agents; Z88.0 Allergy status to penicillin

== ENCOUNTER → 2021-08-30 | Outpatient (CLI) | payer BC, OTHER ==
--- NOTE | 2021-08-30 23:09 | MR ---
EXAMINATION TYPE: MR thoracic spine wo/w con DATE OF EXAM: 08/30/2021 8:34 AM COMPARISON: CT urogram 10/02/2018. INDICATION: Patient age:Female; 46 years old; Reason for study: G35 MS; TECHNIQUE: Multi planar, multi sequence imaging was performed utilizing: T1-weighted and T2-weighted of the thoracic spine. A total of 9 cc of Gadavist was given and the post contrast imaging was perfor med. FINDINGS: The thoracic vertebral bodies have preserved heights and alignment. The osseous structure demonstrate multilevel Modic endplate changes consistent with disc degeneration.. Thoracic spinal cord appears u nremarkable without abnormal postcontrast enhancement. Intervertebral discs demonstrate normal signa l intensity. T3-T4 right central disc protrusion which mildly impresses upon the anterior right spinal cord. The n eural foramen are patent. T5-T6 right central foraminal which narrows the ventral subarachnoid space. T7-T8 left and right central disc protrusion which mildly narrows the ventral subarachnoid space. T8-T9 left central disc protrusion which mildly impresses upon the anterior spinal cord. IMPRESSION: 1. No evidence for demyelination or active multiple sclerosis. 2. Multilevel disc protrusions; which mildly impress upon the spinal cord at T3-T4 and T8-T9.
--- NOTE | 2021-08-30 23:13 | MR ---
EXAMINATION TYPE: MR lumbar spine wo con DATE OF EXAM: 08/30/2021 COMPARISON: MRI lumbar spine 03/30/2016. 09/05/2018 HISTORY: Lower back pain, MS. TECHNIQUE: Multiplanar, multisequence images of the lumbar spine were acquired without IV contrast. L1-L2: No herniation, protrusion or disc bulging. No canal stenosis is present. Foramina are paten t bilaterally. L2-L3: No herniation, protrusion or disc bulging. No canal stenosis is present. Foramina are paten t bilaterally. L3-L4: No herniation, protrusion or disc bulging. No canal stenosis is present. Foramina are patent bilaterally. L4-L5: Disc bulge and facet joint arthropathy without significant spinal canal or neural foraminal st enosis. L5-S1: Disc bulge and facet joint arthropathy without significant spinal canal or neural foraminal st enosis. Lumbar segments are intact. No paraspinal masses are identified. Conus medullaris has a normal appe arance. Mild multilevel disc degeneration changes with associated bone marrow changes. Unchanged roslyn neural cyst involving the left S1 neural foramen. IMPRESSION: 1. No definitive evidence for disc herniation or significant spinal canal stenosis. 2. Mild multilevel disc degeneration changes with disc bulging at L4-L5 and L5-S1. No significant spi nal canal or neural foraminal stenosis identified.
== END | disposition home or self-care (01) ==
LOC: RADMRIMAIN 05:58
PROVIDERS: ATTEND Psychiatry & Neurology Pain Medicine
DX: G35 Multiple sclerosis (principal); M51.36 Other intervertebral disc degeneration, lumbar region; M51.24 Other intervertebral disc displacement, thoracic region
CPT/HCPCS: 72148; 72157; A9585

== ENCOUNTER → 2021-12-06 | Outpatient (CLI) | payer BC, OTHER ==
--- NOTE | 2021-12-06 20:21 | MR ---
EXAMINATION TYPE: MR brain/cspine wo/w DATE OF EXAM: 12/06/2021 6:23 PM CLINICAL INDICATION:Female, 46 years old with history of G35 MULTIPLE SCLEROSIS; COMPARISON: 07/11/2018 TECHNIQUE: Multiplanar, multisequence images of the brain and brainstem is performed. Multi planar, multi sequence imaging was performed utilizing: T1-weighted, T2-weighted, and turbo inv ersion recovery imaging of the cervical spine. With and without contrast. MR IV Contrast: 9 cc Gadavist FINDINGS: BRAIN: Similar periventricular high T2 signal abnormalities within the white matter. No abnormal postcontras t enhancement. Diffusion weighted images demonstrate no evidence of a recent infarct or other diffusi on abnormality. There is no extra-axial fluid collection or significant white matter signal abnormal ity. The ventricular system and cisternal spaces are normal in size and appearance. The brain volum e is age appropriate. Midline structures demonstrate normal morphology. The craniocervical junction appears within normal limits. Post contrast images demonstrate no abnormal enhancement. The dural venous sinuses appear pa tent. The visualized sinuses demonstrate mucosal thickening most pronounced in the right maxillary si nus. Globes are intact. C-SPINE: Alignment: The cervical vertebral bodies have preserved heights. Alignment is within normal limits gi sammy patient positioning. Bones: Mild Modic endplate changes noted throughout the cervical spine. Multilevel degenerative disc disease is noted and most pronounced at the C5-C6 and C6-C7 vertebral levels. Cord: The spinal cord is unremarkable with regards to their signal intensity and morphology. Discs: Intervertebral disc signal is maintained. C2-C3: No significant disc pathology. The spinal canal is patent. No neural foraminal stenosis. C3-C4: No significant disc pathology. The spinal canal is patent. No neural foraminal stenosis. C4-C5: No significant disc pathology. The spinal canal is patent. No neural foraminal stenosis. C5-C6: A disc osteophyte complex is present which minimally narrows the ventral subarachnoid space. Bilateral facet and uncovertebral joint arthropathy are present with moderate right and mild left ne ural foraminal stenosis. C6-C7: A disc osteophyte complex is present which minimally narrows the ventral subarachnoid space. Bilateral facet and uncovertebral joint arthropathy are present with mild bilateral neural foraminal stenosis. C7-T1: No significant disc pathology. The spinal canal is patent. Bilateral facet and uncovertebral joint arthropathy are present with mild bilateral neural foraminal stenosis. Other: None. IMPRESSION: 1. Stable exam without evidence for active demyelination. 2. White matter changes likely related to patient's history of multiple sclerosis. 3. No evidence of intracranial mass, acute/subacute infarct, or abnormal enhancement. 4. No abnormal postcontrast enhancement within the cervical spine. 5. No evidence for disc herniation or significant spinal canal stenosis. 6. Similar multilevel disc degeneration with associated osteoarthritic changes with varying degrees of neural foraminal stenosis worse at C5-C6 and C6-C7.
== END | disposition home or self-care (01) ==
LOC: RADMRIMAIN 17:11
PROVIDERS: ATTEND Psychiatry & Neurology Pain Medicine
DX: G35 Multiple sclerosis (principal); G31.9 Degenerative disease of nervous system, unspecified; M50.322 Other cervical disc degeneration at C5-C6 level; M48.02 Spinal stenosis, cervical region
CPT/HCPCS: 70553; 72156; A9585

== ENCOUNTER → 2023-02-22 | Outpatient (CLI) | payer BC, OTHER ==
--- NOTE | 2023-02-23 10:08 | MR ---
EXAMINATION TYPE: MR brain/cspine wo/w DATE OF EXAM: 02/22/2023 6:57 PM CLINICAL INDICATION:Female, 47 years old with history of G35 MULTIPLE SCLEROSIS, MS COMPARISON: 12/06/2021.. TECHNIQUE: Multi planar, multi sequence imaging was performed through the brain including: T1, T2, Inversion rec overy, Diffusion weighted imaging, and gradient echo imaging. No gadolinium was given. Multi planar, multi sequence imaging was performed utilizing: T1-weighted, T2-weighted, and turbo inv ersion recovery imaging of the cervical spine. IV Contrast: 9ml cc Gadavist FINDINGS: The ross-white junctions, ventricular system, basal cisterns appear unremarkable. Scattered foci of white matter changes are not significantly changed from 12/06/2021. No evidence for restricted diffu shane or abnormal enhancement to suggest active demyelination. Midline structures show no abnormality. Diffusion-weighted imaging shows no evidence of restricted diffusion. The susceptibility weighted im ages do not reveal any evidence for micro-hemorrhage. Cerebellar tonsils extend below the foramen mag num up to 4 mm. The bone marrow signal is within normal limits. Paranasal sinuses and mastoid air cells: Mucosal thickening with retention cyst in the maxillary sinu ses. Findings are not significantly changed from prior. Visualized orbits: Orbital contents are intact. Alignment: The cervical vertebral bodies have preserved heights. Alignment is within normal limits gi sammy patient positioning. Bones: Bone signal is within normal limits. Minimal osteophyte formation disc space narrowing and fac et and uncovertebral joint arthropathy throughout the spine worse at C5-C7. No abnormal bone marrow e aditi on inversion recovery sequences. Cord: The spinal cord is unremarkable with regards to their signal intensity and morphology. Discs: Multilevel disc desiccation is present. C2-C3: No significant disc pathology. The spinal canal is patent. No neural foraminal stenosis. C3-C4: No significant disc pathology. The spinal canal is patent. No neural foraminal stenosis. C4-C5: No significant disc pathology. The spinal canal is patent. No neural foraminal stenosis. C5-C6: No significant disc pathology. The spinal canal is patent. Bilateral facet and uncovertebral joint arthropathy are present with mild bilateral neural foraminal stenosis. C6-C7: A disc osteophyte complex is present which minimally narrows the ventral subarachnoid space. Bilateral facet and uncovertebral joint arthropathy are present with mild left neural foraminal sten osis. The right neural foramen is patent. C7-T1: No significant disc pathology. The spinal canal is patent. No neural foraminal stenosis. Other: None. IMPRESSION: 1. No evidence for restricted diffusion or abnormal enhancement to suggest active demyelination. Gra y-white matter changes not significantly changed from 12/06/2021. 2. No evidence of intracranial mass or acute/subacute infarct. 3. Spinal cord signal maintained. 4. Mild disc degeneration with associated osteoarthritic changes. 5. No evidence for disc herniation or significant spinal canal stenosis. 6. Mild cerebellar tonsillar ectopia.
== END | disposition home or self-care (01) ==
LOC: RADMRIMAIN 17:23
PROVIDERS: ATTEND Psychiatry & Neurology Pain Medicine
DX: G35 Multiple sclerosis (principal); M47.812 Spondylosis without myelopathy or radiculopathy, cervical region; M50.323 Other cervical disc degeneration at C6-C7 level; G93.89 Other specified disorders of brain; Q04.8 Other specified congenital malformations of brain
CPT/HCPCS: 70553; 72156; A9585

== ENCOUNTER → 2023-02-24 | Outpatient (CLI) | payer BC, OTHER ==
--- NOTE | 2023-02-27 17:12 | MR ---
EXAMINATION TYPE: MR thoracic spine wo/w con DATE OF EXAM: 02/24/2023 6:34 PM CLINICAL INDICATION:Female, 47 years old with history of G35, MS COMPARISON: 08/30/2021. TECHNIQUE: Multi planar, multi sequence imaging was performed utilizing: T1-weighted, short-tau inver shane recovery and T2-weighted of the thoracic spine. IV Contrast: 9 cc Gadavist (none if empty) FINDINGS: The thoracic vertebral bodies have preserved heights and alignment. The osseous structure demonstrate multilevel Modic endplate changes consistent with disc degeneration.. Thoracic spinal cord appears u nremarkable without abnormal postcontrast enhancement. Intervertebral discs demonstrate normal signa l intensity. T3-T4: Similar right central disc protrusion/osteophyte which mildly impresses upon the anterior righ t spinal cord. The neural foramen are patent. T5-T6: Similar right osteophyte which narrows the ventral subarachnoid space. T7-T8: Similar osteophytes which mildly narrows the ventral subarachnoid space. T8-T9: Similar osteophytes which mildly impresses upon the anterior spinal cord. IMPRESSION: 1. No evidence for demyelination or active multiple sclerosis. 2. Multilevel degeneration changes with osteophytes present similar to prior. Superimposed protrusio ns not entirely excluded.
== END | disposition home or self-care (01) ==
LOC: RADMRIMAIN 17:19
PROVIDERS: ATTEND Psychiatry & Neurology Pain Medicine
DX: G35 Multiple sclerosis (principal); M47.814 Spondylosis without myelopathy or radiculopathy, thoracic region; M25.78 Osteophyte, vertebrae
CPT/HCPCS: 72157; A9585

== ENCOUNTER → 2023-05-24 | Outpatient (CLI) | payer BC, OTHER ==
[2023-05-24 15:12] VITALS: BP 116/77; PULSE 82; RESP 16; TEMP 97.8
--- NOTE | 2023-05-24 15:54 | P.PN ---
Subjective DATE: 05/24/2023 FOLLOW UP VISIT. Patient was seen in the sleep center in September 2019, at that time patient had home sleep apnea test. Test was negative for obstructive sleep apnea hypopnea syndrome at that time, but according to patient she did not sleep well during the sleep study for most of the night. Patient continued to have snoring, mul tiple awakenings from sleep and significant daytime sleepiness. [place] Sleepiness Scale is an extremely high range of 18. MEDICATIONS:1. Norvasc 5 mg twice a day 2. Furosemide 20 mg once a day 3. Tramadol 50 mg as needed 4. Xanax 0.5 mg as needed 5. Albuterol as needed 6. Loperamide 2 mg twice a day During physical exam: GENERAL: A pleasant patient without any distress. VITAL SIGNS: Please see below, BMI 34.4. HEENT: PERRLA, EOMI.low position of soft palate, Mallapati 4, retrognathia 2 mm. NECK: Supple. No JVD. LUNGS: Clear to percussion and to auscultation. Good air exchange. No wheezing or rhonchi. HEART: S1, S2 regular. ABDOMEN: Soft and nontender.[] EXTREMITIES: No clubbing or cyanosis. SENIOR CYBER SECURITY ANALYST: Awake, alert, and oriented x3. No focal deficit. Impressions: 1. Snoring, multiple awakenings from sleep, extremely low position of soft palate Mallampati 4, significant excessive daytime sleepiness. Obstructive sleep apnea hypopnea syndrome. 2. Significant excessive daytime sleepiness with [place] Sleepiness Scale 18 dictate necessity to include hypersomnia differential diagnosis. 3. History of multiple sclerosis. 4. Hypertension. 5. History of asthma. 6. Status post total hysterectomy. 7. Status post D&C. 8. Status post cholecystectomy. 9. History of vertigo. 10. Mild obesity, BMI 34.4 Plan: 1. Home sleep apnea test for evaluation of patient breathing during sleep at the present time. 2. Multiple sleep latency test if home sleep apnea test will be negative for obstructive sleep apnea hypopnea syndrome. 3. Sleep hygiene with regular time in bed for at least 8 hours. 4. Precautions related to driving. No driving if feel any sleepiness. 5. Following plan after reading home sleep apnea test 6. Watching and losing weight. Thank you very much for allowing me to participate in the management of your patient. Lars Pop MD, PhD, FAASM. Diplomat of [place] [employer], Sleep Medicine Board by [place] [employer] Facilities Coordinator of [facility] [place] Objective - Vital Signs Vital signs: Vital Signs Temp 97.8 F 05/24/23 14:57 Pulse 82 05/24/23 14:57 Resp 16 05/24/23 14:57 BP 116/77 05/24/23 14:57 Pulse Ox 95 05/24/23 14:57 FiO2 Intake & Output 05/23/23 05/24/23 05/24/23 18:59 06:59 18:59 Weight 94.347 kg
== END ==
LOC: 3 N SLEEP 14:22
PROVIDERS: ATTEND Internal Medicine
DX: G47.33 Obstructive sleep apnea (adult) (pediatric) (principal); I10 Essential (primary) hypertension; G47.10 Hypersomnia, unspecified; E66.9 Obesity, unspecified; F17.200 Nicotine dependence, unspecified, uncomplicated; Z87.39 Personal history of other diseases of the musculoskeletal system and connective tissue; Z87.09 Personal history of other diseases of the respiratory system; Z68.34 Body mass index [BMI] 34.0-34.9, adult; Z90.49 Acquired absence of other specified parts of digestive tract; Z90.710 Acquired absence of both cervix and uterus; Z98.890 Other specified postprocedural states; Z86.69 Personal history of other diseases of the nervous system and sense organs; Z79.899 Other long term (current) drug therapy; Z88.5 Allergy status to narcotic agent; Z88.6 Allergy status to analgesic agent; Z88.1 Allergy status to other antibiotic agents; Z88.0 Allergy status to penicillin; Z88.8 Allergy status to other drugs, medicaments and biological substances
CPT/HCPCS: 99212

== ENCOUNTER → 2023-06-12 | Outpatient (CLI) | payer BC, OTHER ==
--- NOTE | 2023-06-14 15:49 | P.PCN ---
Description of Procedure: CLINICAL: A home sleep apnea test has been done for confirmation of possible obstructive sleep apnea-hypopnea syndrome. DESCRIPTION OF PROCEDURE: RESULTS: Recording time was 8 hours 36 minutes. Evaluation time was 8 hours 24 minutes. Evaluation time is sufficient for making conclusion about results of the test. Raw data of sleep recording has been reviewed and is adequate. Respiratory channel showed 2 apneas and 52 hypopneas. Apnea-hypopnea index was 6.4 per hour. Pulse rate in the range between minimum 56, maximum 86, average 64 by computer calculation. Lowest desaturation was 77%. IMPRESSION: 1. Obstructive Sleep Apnea Hypopnea Syndrome. Please see other impressions from consultation. PLAN: 1. The patient will be started on auto-PAP treatment okay for correction of respiratory abnormallities during sleep. 2. I will see patient for follow up visit to discuss results of the test, evaluate clinical response on treatment with PAP therapy and make any necessary adjustments related to mask fitting, pressure, and humidification. 3. Watching and losing weight. 4. Sleep hygiene with regular time in bed for at least 8 hours. 5. No driving if feeling any sleepiness. Thank you very much for allowing me to participate in the management of your patient. Sincerely, Lars Pop MD, PhD, FAASM Diplomat of [place] [employer] Specialties Sleep Medicine Board of [place] Board of Internal Medicine Systems Technician of [facility] [place]
== END ==
LOC: 3 N SLEEP 11:00
PROVIDERS: ATTEND Internal Medicine
DX: G47.33 Obstructive sleep apnea (adult) (pediatric) (principal); I10 Essential (primary) hypertension; G35 Multiple sclerosis; G47.10 Hypersomnia, unspecified; F17.200 Nicotine dependence, unspecified, uncomplicated; Z88.5 Allergy status to narcotic agent; Z88.6 Allergy status to analgesic agent; Z88.1 Allergy status to other antibiotic agents; Z88.8 Allergy status to other drugs, medicaments and biological substances; Z88.0 Allergy status to penicillin; Z79.899 Other long term (current) drug therapy

== ENCOUNTER → 2023-09-06 | Outpatient (CLI) | payer BC, OTHER ==
[2023-09-06 15:39] VITALS: BP 117/79; PULSE 66; RESP 16; TEMP 97.9
--- NOTE | 2023-09-06 16:49 | P.PROGSL ---
Subjective DATE: 09/06/2023 FOLLOW UP VISIT. Patient with obstructive sleep apnea hypopnea syndrome return to sleep center for follow-up visit. Recently patient had sleep study which documented obstructive sleep apnea hypopnea syndrome. Patient was initiated on PAP therapy and today is first visit after treatment was started. Patient was able to use PAP equipment every night for the whole night. The patient does not have significant problems with the mask, PAP pressure and humidification. [place] sleepiness scale is 8, which is in normal range. Dionisio mcqueen feels better after she started to use CPAP equipment. I checked information from PAP unit. PAP unit pressure 5-15, average 10.4 cm H2O. Usage is 70% for more then 4 hours, average 5.5 hours per night. Leak is 23.8 l/m, which is in acceptable range. Apnea Hypopnea Index is 0.6, which is normal. MEDICATIONS: Please see below During physical exam: GENERAL: A pleasant patient without any distress. VITAL SIGNS: Please see below. HEENT: PERRLA, EOMI.low position of soft palate, Mallapati 4 . NECK: Supple. No JVD. LUNGS: Clear to percussion and to auscultation. Good air exchange. No wheezing or rhonchi. HEART: S1, S2 regular. ABDOMEN: Soft and nontender.[] EXTREMITIES: No clubbing or cyanosis. COSMETIC ACCOUNT COORDINATOR: Awake, alert, and oriented x3. No focal deficit. Impressions: 1. Obstructive sleep apnea-hypopnea syndrome. Patient demonstrated great compliance with treatment, benefiting from treatment. 2. History of multiple sclerosis. 3. Hypertension. 4. History of asthma. 5. Mild obesity. 6. Status post cholecystectomy. 7. Status post D&C. 8. History of vertigo. I explained to the patient how to adjust temperature in humidifier and in the heated tube. Plan: 1. Continue using PAP equipment every night for the whole night. 2. To change air filter at least 1-2 times per month. 3. PAP unit should stay lower then position of the head. 4. Advised patient to remove all remaining water from humidifier canister daily and make it dry after each usage. Refill canister with fresh distilled water before each usage. 5. Sleep hygiene with regular time in bed for at least 8 hours. 6. Precautions related to driving. No driving if feel any sleepiness. 7. I will maintain prescription for PAP supplies including mask, tube, filters. 8. Follow up visit in 6 months or earlier if patient has any problems. 9. Watching and losing weight. Thank you very much for allowing me to participate in the management of your patient. Lars Pop MD, PhD, FAASM. Diplomat of [place] [employer], Sleep Medicine Board by [place] [employer] Wafer Production Worker of [facility] [place] Objective - Vital Signs Vital Signs: Vital Signs Temp 97.9 F 09/06/23 15:35 Pulse 66 09/06/23 15:35 Resp 16 09/06/23 15:35 BP 117/79 09/06/23 15:35 Pulse Ox 93 L 09/06/23 15:35 FiO2 Intake & Output 09/05/23 09/06/23 09/06/23 18:59 06:59 18:59 Weight 92.533 kg Home Medications: Home Medications Medication Instructions Recorded Confirmed Type Albuterol Inhaler [Ventolin Hfa 1 - 2 puff INHALATION RT-Q6H PRN 02/09/17 09/06/23 History Inhaler] Cholecalciferol [Vitamin D3] 1,000 unit PO Q48H 02/09/17 09/06/23 History Multivitamins, Thera [Multivitamin 1 tab PO DAILY 02/09/17 09/06/23 History (formulary)] ALPRAZolam [Xanax] 0.5 mg PO DAILY PRN 09/06/23 09/06/23 History Furosemide [Lasix] 20 mg PO DAILY 09/06/23 09/06/23 History Pantoprazole Sodium [Protonix] 40 mg PO BID 09/06/23 09/06/23 History amLODIPine [Norvasc] 5 mg PO TID 09/06/23 09/06/23 History traMADol HCL 50 mg PO PRN 09/06/23 History
== END ==
LOC: 3 N SLEEP 14:47
PROVIDERS: ATTEND Internal Medicine
DX: G47.33 Obstructive sleep apnea (adult) (pediatric) (principal); I10 Essential (primary) hypertension; J45.909 Unspecified asthma, uncomplicated; E66.9 Obesity, unspecified; F17.200 Nicotine dependence, unspecified, uncomplicated; Z86.69 Personal history of other diseases of the nervous system and sense organs; Z98.890 Other specified postprocedural states; Z90.49 Acquired absence of other specified parts of digestive tract; Z99.89 Dependence on other enabling machines and devices; Z79.899 Other long term (current) drug therapy; Z88.5 Allergy status to narcotic agent; Z88.6 Allergy status to analgesic agent; Z88.1 Allergy status to other antibiotic agents; Z88.0 Allergy status to penicillin
CPT/HCPCS: 99212

== ENCOUNTER → 2024-02-01 | Outpatient (CLI) | payer BC, OTHER ==
[2024-02-01 15:50] LABS: % Iron Saturation 31.65 (12.00-45.00); Iron 94 UG/DL (50-170); Total Iron Binding Capacity 297 UG/DL (228-460)
[2024-02-01 15:51] LABS: ALT 16 U/L (8-44); AST 19 U/L (13-35); Albumin 4.5 g/dL (3.8-4.9); Albumin/Globulin Ratio 1.96 Ratio (1.60-3.17); Alkaline Phosphatase 88 U/L (41-126); Blood Urea Nitrogen 14.4 mg/dL (9.0-27.0); Calcium 9.7 mg/dL (8.7-10.3); Carbon Dioxide 26.3 mmol/L (21.6-31.8); Chloride 102 mmol/L (96-109); Globulin 2.3 g/dL (1.6-3.3); Glucose 109 mg/dL (70-110); Potassium 4.4 mmol/L (3.5-5.5); Sodium 142 mmol/L (135-145); T4, Free (Free Thyroxine) 1.28 ng/dL (0.80-1.80); Total Bilirubin 0.3 mg/dL (0.3-1.2); Total Protein 6.8 g/dL (6.2-8.2)
== END | disposition home or self-care (01) ==
LOC: LABWHC1 10:57
PROVIDERS: ATTEND Psychiatry & Neurology Neurology
DX: R53.82 Chronic fatigue, unspecified (principal); E03.9 Hypothyroidism, unspecified; D64.9 Anemia, unspecified; E53.9 Vitamin B deficiency, unspecified; E87.8 Other disorders of electrolyte and fluid balance, not elsewhere classified; E55.9 Vitamin D deficiency, unspecified
CPT/HCPCS: 36415; 80053; 82306; 82607; 82728; 83540; 83550; 84207; 84439; 84443; 84466; 84481